=== PATIENT | male | born 1955 | race Caucasian/White ===

== ENCOUNTER 2016-07-16 03:47 | Inpatient (IN) | payer MEDICARE, BC ==
[~2016-07-16] VITALS: Ht 175.3 cm; Wt 83.0 kg
[~2016-07-16 03:47] MED LIST: ASPIRIN81 MG ORAL; COLACE100 MG ORAL; CYMBALTA30 MG ORAL; FISH OIL300 M1 PO; FLUOXETINE HCL40 MG ORAL; FLURAZEPAM HCL15 MG ORAL; GABAPENTIN600 MG ORAL; LEVOTHYROXINE50 MCG ORAL; MIRALAX17 G2 ORAL; MULTI VITAMIN1 EACH ORAL; SENNA8.6 M3 PO; TOPIRAMATE100 MG ORAL; TRIAZOLAM0.25 MG PO; TYLENOL PM EX-1 EACH PO
[2016-07-16 08:00] VITALS: BP 133/85
[2016-07-16 11:45] LABS: BASOPHILS % (AUTO) 0.7 % (0.0-2.0); EOSINOPHILS % (AUTO) 1.5 % (0.0-3.0); LYMPHOCYTES % (AUTO) 36.6 % (20.0-45.0); MEAN CORPUSCULAR HEMOGLOBIN 29.2 PG (27.0-31.0); MEAN CORPUSCULAR HGB CONC 32.6 G/DL (32.0-36.0); MEAN CORPUSCULAR VOLUME 90 FL (80-99); MEAN PLATELET VOLUME 6.9 FL (6.5-10.1); MONOCYTES % (AUTO) 9.8 % (1.0-10.0); NEUTROPHILS % (AUTO) 51.3 % (45.0-75.0); PLATELET COUNT 218 K/UL (150-450); RED BLOOD COUNT 5.31 M/UL (4.70-6.10); RED CELL DISTRIBUTION WIDTH 12.8 % (11.6-14.8)
[2016-07-16] MEDS ORDERED: DESONIDE15 GM TP (11:55)
[2016-07-16] MEDS ORDERED: DIAZEPAM10 MG ORAL (11:55)
[2016-07-16] MEDS ORDERED: DIVALPROEX SOD500 MG PO (11:55)
[2016-07-16 11:59] VITALS: BP 154/77
[2016-07-16 12:02] LABS: INR 1.1 (0.9-1.1)
[2016-07-16] MEDS ORDERED: TRAZODONE HCL150 MG ORAL (12:07)
[2016-07-16] MEDS ORDERED: CYMBALTA60 MG ORAL (12:07)
[2016-07-16] MEDS ORDERED: KLOR-CON 1010 MEQ ORAL (12:07)
[2016-07-16] MEDS ORDERED: QUETIAPINE FUM200 M1 PO (12:07)
[2016-07-16] MEDS ORDERED: FLUOXETINE20 MG/5 ML ORAL (12:07)
[2016-07-16] MEDS ORDERED: ATARAX50 MG ORAL (12:07)
[2016-07-16] MEDS ORDERED: MAGNESIUM400 M1 PO (12:07)
[2016-07-16] MEDS ORDERED: FISH OIL300 M1 PO (12:07)
[2016-07-16] MEDS ORDERED: GABAPENTIN300 MG ORAL (12:07)
[2016-07-16 12:08] LABS: ALANINE AMINOTRANSFERASE 19 U/L (3-41); ALBUMIN/GLOBULIN RATIO 1.6 (1.0-2.7); ANION GAP 15 (5-15); ASPARTATE AMINO TRANSFERASE 21 U/L (5-40); CALCIUM 9.9 mg/dL (8.6-10.2); CARBON DIOXIDE 27 mEQ/L (20-30); CHLORIDE 101 mEQ/L (98-107); CREATININE 1.2 mg/dL (0.7-1.2); GLOMERULAR FILTRATION RATE > 60 mL/min (>60); HEMOLYSIS 8; POTASSIUM 4.2 mEQ/L (3.4-4.9); SODIUM 143 mEQ/L (135-145); TOTAL PROTEIN 7.2 g/dL (6.6-8.7); TROPONIN I < 0.30 ng/mL (<=0.30)
--- NOTE | 2016-07-16 14:06 | Consultation ---
History of Present Illness General Date patient seen: Jul 16, 2016 Chief Complaint: chest pain Referring physician: Dr. Harper Present Illness HPI 61 year old male with hx of CAD, silent MT, seizures, started having Left sided neck pain. He asked his to "google" neck pain to see what it might cause it. They saw heart attack among them. He called his sister in [place] who is a physician, who recommended to call 911. He first was taken to [facility]. An acute MT was ruled out then he was transferred to [place] for further work up. Allergies: Uncoded Allergies: benadryl, niacin, PCN (Allergy, Unknown, Anaphylaxis, 07/16/16) Medication History Scheduled Aspirin* (Aspirin*), 81 MG ORAL DAILY, (Reported) Duloxetine Hcl* (Cymbalta*), 60 MG ORAL DAILY, (Reported) Duloxetine Hcl* (Cymbalta*), 60 MG ORAL DAILY, (Reported) Fluoxetine Hcl (Fluoxetine Hcl), 20 MG ORAL DAILY, (Reported) Gabapentin* (Gabapentin*), 600 MG ORAL THREE TIMES A DAY, (Reported) Gabapentin* (Gabapentin*), 300 MG ORAL THREE TIMES A DAY, (Reported) Hydroxyzine HCl (Hydroxyzine Pamoate), 50 MG ORAL FOUR TIMES A DAY, (Reported) Levothyroxine Sodium* (Levothyroxine Sodium*), 50 MCG ORAL DAILY, (Reported) Multivitamin (Multi Vitamin Daily), 1 TAB ORAL DAILY, (Reported) [place]-3 Fatty Acids (Fish Oil), Unknown Dose PO daily, (Reported) Potassium Chloride (Klor-Con 10), 10 MEQ ORAL DAILY, (Reported) Topiramate* (Topamax*), 200 MG ORAL DAILY, (Reported) Trazodone* (Trazodone*), 150 MG ORAL BEDTIME, (Reported) Scheduled PRN Diazepam* (Diazepam*), 10 MG ORAL Q6H PRN for ANXIETY, (Reported) Docusate Sodium* (Colace*), Unknown Dose ORAL daily PRN for Constipation, ( Reported) Polyethylene Glycol 3350* (Miralax*), Unknown Dose ORAL DAILY PRN for Constipation, (Reported) Sennosides (Senna), Unknown Dose PO daily PRN for Constipation, (Reported) Triazolam* (Halcion*), 0.25 MG PO QHS PRN SLEEP PRN for Insomnia, (Reported) Miscellaneous Medications Desonide (Desonide), 15 GM TP, (Reported) Divalproex Sodium (Divalproex Sodium), 500 MG PO, (Reported) Magnesium Oxide (Magnesium), 400 MG PO, (Reported) [place]-3 Fatty Acids (Fish Oil), 300 MG PO, (Reported) Quetiapine Fumarate (Quetiapine Fumarate Er), 200 MG PO, (Reported) Patient History Healthcare decision maker Resuscitation status Full Code Advanced Directive on File Past Medical/Surgical History Past Medical/Surgical History: (1) CAD (coronary artery disease) (2) Seizures Review of Systems All Other Systems: negative except mentioned in HPI Physical Exam General Appearance: WD/WN Lines, tubes and drains: peripheral, central line HEENT: normocephalic, atraumatic Neck: non-tender, normal alignment Respiratory/Chest: chest wall non-tender, lungs clear Cardiovascular/Chest: normal peripheral pulses, normal rate Abdomen: normal bowel sounds, non tender Genitourinary/Rectal: normal genital exam Last 24 Hour Vital Signs Date Time Temp Pulse Resp B/P Pulse Ox O2 Delivery O2 Flow Rate FiO2 07/16/16 11:59 97.0 81 18 154/77 96 Room Air 07/16/16 08:00 97.3 80 18 133/85 97 Room Air Laboratory Tests Test 07/16/16 11:32 White Blood Count 7.0 K/UL (4.8-10.8) Red Blood Count 5.31 M/UL (4.70-6.10) Hemoglobin 15.5 G/DL (14.2-18.0) Hematocrit 47.6 % (42.0-52.0) Mean Corpuscular Volume 90 FL (80-99) Mean Corpuscular Hemoglobin 29.2 PG (27.0-31.0) Mean Corpuscular Hemoglobin Concent 32.6 G/DL (32.0-36.0) Red Cell Distribution Width 12.8 % (11.6-14.8) Platelet Count 218 K/UL (150-450) Mean Platelet Volume 6.9 FL (6.5-10.1) Neutrophils (%) (Auto) 51.3 % (45.0-75.0) Lymphocytes (%) (Auto) 36.6 % (20.0-45.0) Monocytes (%) (Auto) 9.8 % (1.0-10.0) Eosinophils (%) (Auto) 1.5 % (0.0-3.0) Basophils (%) (Auto) 0.7 % (0.0-2.0) Prothrombin Time 11.0 SEC (9.30-11.50) Prothromb Time International Ratio 1.1 (0.9-1.1) Activated Partial Thromboplast Time 28 SEC (23-33) Sodium Level 143 mEQ/L (135-145) Potassium Level 4.2 mEQ/L (3.4-4.9) Chloride Level 101 mEQ/L (98-107) Carbon Dioxide Level 27 mEQ/L (20-30) Anion Gap 15 (5-15) Blood Urea Nitrogen 21 mg/dL (7-23) Creatinine 1.2 mg/dL (0.7-1.2) Estimat Glomerular Filtration Rate > 60 mL/min (>60) Glucose Level 103 mg/dL (74-106) Calcium Level 9.9 mg/dL (8.6-10.2) Total Bilirubin 0.8 mg/dL (0.0-1.2) Aspartate Amino Transf (AST/SGOT) 21 U/L (5-40) Alanine Aminotransferase (ALT/SGPT) 19 U/L (3-41) Alkaline Phosphatase 60 U/L (40-129) Troponin I < 0.30 ng/mL (<=0.30) Total Protein 7.2 g/dL (6.6-8.7) Albumin 4.5 g/dL (3.5-5.2) Globulin 2.7 g/dL Albumin/Globulin Ratio 1.6 (1.0-2.7) Thyroid Stimulating Hormone (TSH) 3.440 uIU/mL (0.300-4.500) Height (Feet): 5 Height (Inches): 9.00 Weight (Pounds): 183 Assessment/Plan Problem List: (1) Chest pain ICD Codes: R07.9 - Chest pain, unspecified SNOMED: 93057988 (2) Seizures ICD Codes: R56.9 - Unspecified convulsions SNOMED: 72285405 (3) CAD (coronary artery disease) ICD Codes: I25.10 - Atherosclerotic heart disease of [place] coronary artery without angina pectoris SNOMED: 10525167 Assessment/Plan serial ekg, troponin Echo cardio evaluation resume seizure meds JIMENEZ HERRERA Jul 16, 2016 14:06
[2016-07-16] MEDS ORDERED: Depakote 500mg tab ORAL SCH (14:15)
--- NOTE | 2016-07-16 15:27 | Cardiac Electrophysiology PN ---
Subjective Subjective [id number] chest pain. ECG and echo and stress test Objective Last 24 Hour Vital Signs Date Time Temp Pulse Resp B/P Pulse Ox O2 Delivery O2 Flow Rate FiO2 07/16/16 11:59 97.0 81 18 154/77 96 Room Air 07/16/16 08:00 97.3 80 18 133/85 97 Room Air Laboratory Tests Test 07/16/16 11:32 White Blood Count 7.0 K/UL (4.8-10.8) Red Blood Count 5.31 M/UL (4.70-6.10) Hemoglobin 15.5 G/DL (14.2-18.0) Hematocrit 47.6 % (42.0-52.0) Mean Corpuscular Volume 90 FL (80-99) Mean Corpuscular Hemoglobin 29.2 PG (27.0-31.0) Mean Corpuscular Hemoglobin Concent 32.6 G/DL (32.0-36.0) Red Cell Distribution Width 12.8 % (11.6-14.8) Platelet Count 218 K/UL (150-450) Mean Platelet Volume 6.9 FL (6.5-10.1) Neutrophils (%) (Auto) 51.3 % (45.0-75.0) Lymphocytes (%) (Auto) 36.6 % (20.0-45.0) Monocytes (%) (Auto) 9.8 % (1.0-10.0) Eosinophils (%) (Auto) 1.5 % (0.0-3.0) Basophils (%) (Auto) 0.7 % (0.0-2.0) Prothrombin Time 11.0 SEC (9.30-11.50) Prothromb Time International Ratio 1.1 (0.9-1.1) Activated Partial Thromboplast Time 28 SEC (23-33) Sodium Level 143 mEQ/L (135-145) Potassium Level 4.2 mEQ/L (3.4-4.9) Chloride Level 101 mEQ/L (98-107) Carbon Dioxide Level 27 mEQ/L (20-30) Anion Gap 15 (5-15) Blood Urea Nitrogen 21 mg/dL (7-23) Creatinine 1.2 mg/dL (0.7-1.2) Estimat Glomerular Filtration Rate > 60 mL/min (>60) Glucose Level 103 mg/dL (74-106) Calcium Level 9.9 mg/dL (8.6-10.2) Total Bilirubin 0.8 mg/dL (0.0-1.2) Aspartate Amino Transf (AST/SGOT) 21 U/L (5-40) Alanine Aminotransferase (ALT/SGPT) 19 U/L (3-41) Alkaline Phosphatase 60 U/L (40-129) Troponin I < 0.30 ng/mL (<=0.30) Total Protein 7.2 g/dL (6.6-8.7) Albumin 4.5 g/dL (3.5-5.2) Globulin 2.7 g/dL Albumin/Globulin Ratio 1.6 (1.0-2.7) Thyroid Stimulating Hormone (TSH) 3.440 uIU/mL (0.300-4.500) PADMINI VILLASENOR Jul 16, 2016 15:27
--- NOTE | 2016-07-16 15:42 | History & Physical ---
History and Physical History & Physicial Dictated for Int Med-Dr Carrion no. [id number]. YAMILE EASTMAN Jul 16, 2016 15:42
[2016-07-16 16:00] VITALS: BP 134/87
[2016-07-16 20:00] VITALS: BP 148/91
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
[2016-07-16] MEDS ORDERED: Depakote ER 250mg tab ORAL SCH (21:00)
[2016-07-16] MEDS ORDERED: TraZODone 100mg tab ORAL SCH (21:00)
--- NOTE | 2016-07-16 21:48 | Consultation ---
DATE OF CONSULTATION: 07/16/2016 CARDIOLOGY CONSULTATION REFERRING PHYSICIAN: Ned Carrion M.D. REASON FOR CONSULTATION: Chest pain. HISTORY OF PRESENT ILLNESS: The patient is a very pleasant 61-year-old gentleman with a history of hypertension and myocardial infarction. Per patient, he never had a cardiac catheterization and start developing neck pain with radiation to his chest. He asked his to google it and saw a physician recommended to call 911. The patient was taken to [facility]. I was ruled out for myocardial infarction. The patient was then transferred to [facility] for further evaluation and management. He states that it was told that he would not need a defibrillator, but I do not know why it was even considered. He stated that his ejection fraction is now 64%. REVIEW OF SYSTEMS: Review of systems was thoroughly performed and was negative other than what was mentioned in the history of present illness. PAST MEDICAL HISTORY: 1. Hypertension. 2. [place]. 3. Bipolar disorder. FAMILY HISTORY: Noncontributory. SOCIAL HISTORY: He does smoke or drink alcohol. Lives with family. He is allergic to Benadryl, niacin, and penicillin. MEDICATIONS: Include aspirin, Cymbalta, fluoxetine, gabapentin, hydroxyzine, Synthroid, Topamax, and trazodone. His main problem is noncontributory. PHYSICAL EXAMINATION: VITAL SIGNS: Blood pressure is 154/77, pulse 81, respirations 18, and temperature 97. HEENT: Showed no JVD or carotid bruits. LUNGS: Clear. CARDIOVASCULAR: Shows regular S1 and S2 with no gallop or murmur. ABDOMEN: Soft and nontender. EXTREMITIES: No pitting edema. His EKG showed normal sinus rhythm with no acute ST-T wave abnormality. LABORATORY DATA: Show white count 7, hemoglobin 15.4, hematocrit of 47.2, and platelets 218,000. Sodium 143, potassium 4.2, BUN of 21, creatinine 1.2, and glucose of 103. Troponin is negative. INR is 1.1. ASSESSMENT AND PLAN: 1. Atypical chest pain. He has noticed myocardial infarction based on electrocardiogram. The patient was ruled out for myocardial infarction by serial cardiac enzymes. 2. We is scheduled the patient for nuclear stress test for further evaluation. We will also get an echocardiogram. 3. Hypothyroidism on Synthroid. 4. Bipolar disorder on trazodone, Depakote, and gabapentin. Thank you very much for allowing me to participate in the care of this patient. Please do not hesitate to contact me for any questions regarding my evaluation. The case was discussed with Dr. Evon Wallace. Carter Mckeon M.D. DR: ANAMARIA JOB#: [id number] CC:
[2016-07-16] MEDS ORDERED: QUEtiapine 200mg tab ORAL SCH (22:00)
[2016-07-16] MEDS ORDERED: Morphine Sulfate 2mg/ml Inj IVP PRN (22:30)
[2016-07-17 04:30] VITALS: BP 112/64
[2016-07-17 07:12] LABS: EOSINOPHILS % (AUTO) 1.9 % (0.0-3.0); LYMPHOCYTES % (AUTO) 40.7 % (20.0-45.0); MEAN CORPUSCULAR HEMOGLOBIN 29.8 PG (27.0-31.0); MEAN CORPUSCULAR HGB CONC 33.3 G/DL (32.0-36.0); MEAN CORPUSCULAR VOLUME 89 FL (80-99); MEAN PLATELET VOLUME 6.7 FL (6.5-10.1); MONOCYTES % (AUTO) 8.7 % (1.0-10.0); NEUTROPHILS % (AUTO) 47.7 % (45.0-75.0); PLATELET COUNT 175 K/UL (150-450); RED BLOOD COUNT 4.82 M/UL (4.70-6.10); RED CELL DISTRIBUTION WIDTH 12.8 % (11.6-14.8); WHITE BLOOD COUNT 6.5 K/UL (4.8-10.8)
[2016-07-17 07:13] LABS: APPEARANCE,URINE CLEAR; KETONES,URINE NEGATIVE (NEGATIVE); LEUKOCYTE ESTERASE ,URINE NEGATIVE (NEGATIVE); NITRITE,URINE NEGATIVE (NEGATIVE); PH,URINE 6.5 (4.5-8.0); PROTEIN,URINE NEGATIVE (NEGATIVE); UROBILINOGEN,URINE NORMAL MG/DL (0.0-1.0)
[2016-07-17 07:38] LABS: ANION GAP 12 (5-15); CALCIUM 8.9 mg/dL (8.6-10.2); CARBON DIOXIDE 26 mEQ/L (20-30); CHLORIDE 105 mEQ/L (98-107); CHOLESTEROL 229 mg/dL (< 200); CHOLESTEROL/HDL RATIO 5.3 (3.3-4.4); CREATININE 1.1 mg/dL (0.7-1.2); GLOMERULAR FILTRATION RATE > 60 mL/min (>60); HEMOLYSIS 9; LDL CHOLESTEROL (CALC.) 147 mg/dL (60-99); POTASSIUM 3.7 mEQ/L (3.4-4.9); SODIUM 143 mEQ/L (135-145)
[2016-07-17 08:00] VITALS: BP 111/70
[2016-07-17 08:35] LABS: TROPONIN I < 0.30 ng/mL (<=0.30)
[2016-07-17] MEDS ORDERED: Aspirin Baby 81mg ORAL SCH (09:00)
[2016-07-17] MEDS ORDERED: Topiramate 100mg tab ORAL SCH ×2 (09:00)
[2016-07-17] MEDS ORDERED: Magnesium Oxide 400mg tab ORAL SCH (09:00)
[2016-07-17] MEDS ORDERED: DULoxetine 30mg cap ORAL SCH (09:00)
[2016-07-17 12:02] LABS: TROPONIN I < 0.30 ng/mL (<=0.30)
[2016-07-17 12:04] VITALS: BP 108/76
[2016-07-17 16:00] VITALS: BP 131/89
--- NOTE | 2016-07-17 16:01 | Cardiac Electrophysiology PN ---
Assessment/Plan Assessment/Plan 1. Atypical chest pain.Ruled out for myocardial infarction. Stress test report is pending.Echo pending. 2. Bipolar disorder on trazodone, Depakote, and gabapentin. 3. Hyperlipidemia on Lipitor DW RN and nuclear tech Subjective Subjective No chest pain. Had stress test today Objective Last 24 Hour Vital Signs Date Time Temp Pulse Resp B/P Pulse Ox O2 Delivery O2 Flow Rate FiO2 07/17/16 12:04 97.0 62 18 108/76 97 Room Air 07/17/16 08:00 57 07/17/16 08:00 96.9 60 17 111/70 96 Room Air 07/17/16 04:30 97.0 59 20 112/64 95 Room Air 07/17/16 00:00 72 07/16/16 20:00 83 07/16/16 20:00 97.7 81 20 148/91 97 Room Air 07/16/16 16:00 82 07/16/16 16:00 97.2 71 21 134/87 95 Room Air Intake and Output 07/16/16 07/17/16 19:00 07:00 Intake Total 240 ml 300 ml Output Total 750 ml Balance 240 ml -450 ml Intake Oral 240 ml 300 ml Output Urine Total 750 ml # Voids 3 2 # Bowel Movements 1 Laboratory Tests Test 07/17/16 06:15 07/17/16 06:40 07/17/16 11:10 Urine Color Pale yellow Urine Appearance Clear Urine pH 6.5 (4.5-8.0) Urine Specific [place] 1.005 (1.005-1.035) Urine Protein Negative (NEGATIVE) Urine Glucose (UA) Negative (NEGATIVE) Urine Ketones Negative (NEGATIVE) Urine Occult Blood Negative (NEGATIVE) Urine Nitrite Negative (NEGATIVE) Urine Bilirubin Negative (NEGATIVE) Urine Urobilinogen Normal MG/DL (0.0-1.0) Urine Leukocyte Esterase Negative (NEGATIVE) White Blood Count 6.5 K/UL (4.8-10.8) Red Blood Count 4.82 M/UL (4.70-6.10) Hemoglobin 14.4 G/DL (14.2-18.0) Hematocrit 43.1 % (42.0-52.0) Mean Corpuscular Volume 89 FL (80-99) Mean Corpuscular Hemoglobin 29.8 PG (27.0-31.0) Mean Corpuscular Hemoglobin Concent 33.3 G/DL (32.0-36.0) Red Cell Distribution Width 12.8 % (11.6-14.8) Platelet Count 175 K/UL (150-450) Mean Platelet Volume 6.7 FL (6.5-10.1) Neutrophils (%) (Auto) 47.7 % (45.0-75.0) Lymphocytes (%) (Auto) 40.7 % (20.0-45.0) Monocytes (%) (Auto) 8.7 % (1.0-10.0) Eosinophils (%) (Auto) 1.9 % (0.0-3.0) Basophils (%) (Auto) 1.0 % (0.0-2.0) Sodium Level 143 mEQ/L (135-145) Potassium Level 3.7 mEQ/L (3.4-4.9) Chloride Level 105 mEQ/L (98-107) Carbon Dioxide Level 26 mEQ/L (20-30) Anion Gap 12 (5-15) Blood Urea Nitrogen 23 mg/dL (7-23) Creatinine 1.1 mg/dL (0.7-1.2) Estimat Glomerular Filtration Rate > 60 mL/min (>60) Glucose Level 113 mg/dL (74-106) H Calcium Level 8.9 mg/dL (8.6-10.2) Troponin I < 0.30 ng/mL (<=0.30) < 0.30 ng/mL (<=0.30) Triglycerides Level 196 mg/dL (< 150) H Cholesterol Level 229 mg/dL (< 200) H LDL Cholesterol 147 mg/dL (60-99) H HDL Cholesterol 43 mg/dL (> 60) Cholesterol/HDL Ratio 5.3 (3.3-4.4) H Thyroid Stimulating Hormone (TSH) 2.200 uIU/mL (0.300-4.500) Free Thyroxine 0.77 ng/dL (0.86-1.85) L Objective HEENT: Showed no JVD or carotid bruits. LUNGS: Clear. CARDIOVASCULAR: Shows regular S1 and S2 with no gallop or murmur. ABDOMEN: Soft and nontender. EXTREMITIES: No pitting edema. PADMINI VILLASENOR Jul 17, 2016 16:01
[2016-07-17] MEDS ORDERED: DOBUTamine 250mg/250ml Premix IV ONE (16:18)
--- NOTE | 2016-07-17 16:35 | Internal Med Progress Note ---
Subjective Date of Service: Jul 17, 2016 Physician Name Yamile Eastman Attending Physician Ned Carrion MD Current Medications Medications (Trade) Dose Ordered Sig/Buzz Route PRN Reason Start Time Stop Time Status Last Admin Dose Admin Aspirin (ASA) 81 mg DAILY ORAL 07/17/16 09:00 08/16/16 08:59 07/17/16 09:05 Atorvastatin Calcium (Lipitor) 10 mg BEDTIME ORAL 07/16/16 21:00 08/15/16 20:59 Divalproex Sodium (Depakote ER) 250 mg QHS ORAL 07/16/16 21:00 08/15/16 20:59 07/16/16 21:52 Duloxetine HCl (Cymbalta) 60 mg DAILY ORAL 07/17/16 09:00 08/16/16 08:59 07/17/16 09:05 Gabapentin (Neurontin) 600 mg THREE TIMES A DAY ORAL 07/16/16 21:00 08/15/16 20:59 07/17/16 12:11 Levothyroxine Sodium (Synthroid) 50 mcg ACBREAKFAST ORAL 07/17/16 06:30 08/16/16 06:29 07/17/16 06:19 Magnesium Oxide (Mag-Ox 400mg) 400 mg DAILY ORAL 07/17/16 09:00 08/16/16 08:59 07/17/16 09:05 Morphine Sulfate (Morphine Sulfate) 2 mg Q4H PRN IVP For Pain 07/16/16 22:30 07/23/16 22:29 Potassium Chloride (K-Dur) 10 meq DAILY ORAL 07/17/16 09:00 08/16/16 08:59 07/17/16 09:05 Quetiapine Fumarate (SEROquel) 200 mg BEDTIME ORAL 07/16/16 22:00 08/15/16 21:59 07/16/16 21:50 Topiramate (Topamax) 100 mg DAILY ORAL 07/17/16 09:00 08/16/16 08:59 07/17/16 09:04 Trazodone HCl (Desyrel) 150 mg BEDTIME ORAL 07/16/16 21:00 08/15/16 20:59 07/16/16 21:52 Allergies: Coded Allergies: DIPHENHYDRAMINE (Verified Allergy, Unknown, 07/16/16) NIACIN (Verified Allergy, Unknown, 07/16/16) PENICILLINS (Verified Allergy, Unknown, 07/16/16) Uncoded Allergies: benadryl, niacin, PCN (Allergy, Unknown, Anaphylaxis, 07/16/16) ROS Limited/Unobtainable: No Constitutional: Reports: no symptoms HEENT: Reports: no symptoms Cardiovascular: Reports: no symptoms Respiratory: Reports: no symptoms Gastrointestinal/Abdominal: Reports: no symptoms Genitourinary: Reports: no symptoms Neurologic/Psychiatric: Reports: no symptoms Subjective 61 YO M admitted with left shoulder/arm pain. Await nuclear cardiac stress test results. Cover for Int Med-Dr Carrion. Objective Last Vital Signs Date Time Temp Pulse Resp B/P Pulse Ox O2 Delivery O2 Flow Rate FiO2 07/17/16 12:04 97.0 62 18 108/76 97 Room Air General Appearance: WD/WN, no apparent distress EENT: PERRL/EOMI, normal ENT inspection Neck: non-tender, normal alignment, supple, normal inspection Cardiovascular: normal peripheral pulses, normal rate, regular rhythm, no gallop/murmur, no JVD Respiratory/Chest: chest wall non-tender, lungs clear, normal breath sounds, no respiratory distress, no accessory muscle use Abdomen: normal bowel sounds, non tender, soft, no organomegaly, no mass Extremities: normal range of motion Neurologic: pet counselor II-XII grossly normal, no motor/sensory deficits Skin: normal pigmentation, warm/dry Laboratory Tests Test 07/17/16 06:15 07/17/16 06:40 07/17/16 11:10 Urine Color Pale yellow Urine Appearance Clear Urine pH 6.5 (4.5-8.0) Urine Specific [place] 1.005 (1.005-1.035) Urine Protein Negative (NEGATIVE) Urine Glucose (UA) Negative (NEGATIVE) Urine Ketones Negative (NEGATIVE) Urine Occult Blood Negative (NEGATIVE) Urine Nitrite Negative (NEGATIVE) Urine Bilirubin Negative (NEGATIVE) Urine Urobilinogen Normal MG/DL (0.0-1.0) Urine Leukocyte Esterase Negative (NEGATIVE) White Blood Count 6.5 K/UL (4.8-10.8) Red Blood Count 4.82 M/UL (4.70-6.10) Hemoglobin 14.4 G/DL (14.2-18.0) Hematocrit 43.1 % (42.0-52.0) Mean Corpuscular Volume 89 FL (80-99) Mean Corpuscular Hemoglobin 29.8 PG (27.0-31.0) Mean Corpuscular Hemoglobin Concent 33.3 G/DL (32.0-36.0) Red Cell Distribution Width 12.8 % (11.6-14.8) Platelet Count 175 K/UL (150-450) Mean Platelet Volume 6.7 FL (6.5-10.1) Neutrophils (%) (Auto) 47.7 % (45.0-75.0) Lymphocytes (%) (Auto) 40.7 % (20.0-45.0) Monocytes (%) (Auto) 8.7 % (1.0-10.0) Eosinophils (%) (Auto) 1.9 % (0.0-3.0) Basophils (%) (Auto) 1.0 % (0.0-2.0) Sodium Level 143 mEQ/L (135-145) Potassium Level 3.7 mEQ/L (3.4-4.9) Chloride Level 105 mEQ/L (98-107) Carbon Dioxide Level 26 mEQ/L (20-30) Anion Gap 12 (5-15) Blood Urea Nitrogen 23 mg/dL (7-23) Creatinine 1.1 mg/dL (0.7-1.2) Estimat Glomerular Filtration Rate > 60 mL/min (>60) Glucose Level 113 mg/dL (74-106) H Calcium Level 8.9 mg/dL (8.6-10.2) Troponin I < 0.30 ng/mL (<=0.30) < 0.30 ng/mL (<=0.30) Triglycerides Level 196 mg/dL (< 150) H Cholesterol Level 229 mg/dL (< 200) H LDL Cholesterol 147 mg/dL (60-99) H HDL Cholesterol 43 mg/dL (> 60) Cholesterol/HDL Ratio 5.3 (3.3-4.4) H Thyroid Stimulating Hormone (TSH) 2.200 uIU/mL (0.300-4.500) Free Thyroxine 0.77 ng/dL (0.86-1.85) L Intake and Output 07/16/16 07/17/16 19:00 07:00 Intake Total 240 ml 300 ml Output Total 750 ml Balance 240 ml -450 ml Intake Oral 240 ml 300 ml Output Urine Total 750 ml # Voids 3 2 # Bowel Movements 1 Assessment/Plan Problem List: (1) Gal's thyroiditis (2) Bipolar depression Assessment & Plan: cont cymbalta and depakote. (3) Renal calculi (4) Jaw pain (5) Left shoulder pain (6) Seizure disorder Assessment & Plan: Cont topamax (7) Traumatic brain injury (8) Chest pain Assessment & Plan: Nuclear med cardiac stress test nonischemic. see cardiology note. (9) CAD (coronary artery disease) Status: progressing Assessment/Plan Discharge planning YAMILE EASTMAN Jul 17, 2016 16:35
--- NOTE | 2016-07-17 22:23 | Pulmonology Progress Note ---
Assessment/Plan Problems: (1) Chest pain (2) Seizures (3) CAD (coronary artery disease) Assessment/Plan Assessment/Plan serial ekg, troponin Echo cardio evaluation resume seizure meds Subjective ROS Limited/Unobtainable: No Constitutional: Reports: anorexia, fatigue Respiratory: Reports: dyspnea at rest, shortness of breath Cardiovascular: Reports: chest pain, palpitations Allergies: Coded Allergies: DIPHENHYDRAMINE (Verified Allergy, Unknown, 07/16/16) NIACIN (Verified Allergy, Unknown, 07/16/16) PENICILLINS (Verified Allergy, Unknown, 07/16/16) Uncoded Allergies: benadryl, niacin, PCN (Allergy, Unknown, Anaphylaxis, 07/16/16) Objective Last 24 Hour Vital Signs Date Time Temp Pulse Resp B/P Pulse Ox O2 Delivery O2 Flow Rate FiO2 07/17/16 18:59 96.6 07/17/16 16:00 96.6 94 21 131/89 99 Room Air 07/17/16 16:00 94 07/17/16 12:04 97.0 62 18 108/76 97 Room Air 07/17/16 08:00 57 07/17/16 08:00 96.9 60 17 111/70 96 Room Air 07/17/16 04:30 97.0 59 20 112/64 95 Room Air 07/17/16 00:00 72 Intake and Output 07/16/16 07/17/16 19:00 07:00 Intake Total 240 ml 300 ml Output Total 750 ml Balance 240 ml -450 ml Intake Oral 240 ml 300 ml Output Urine Total 750 ml # Voids 3 2 # Bowel Movements 1 General Appearance: no acute distress HEENT: normocephalic, atraumatic, PERRL Respiratory/Chest: chest wall non-tender, decreased breath sounds, accessory muscle use Cardiovascular: normal peripheral pulses, normal rate, regular rhythm, no JVD Abdomen: normal bowel sounds, soft, non tender, no organomegaly Genitourinary: normal external genitalia Extremities: no cyanosis, pedal pulses normal Skin: no rash, lesions 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, no motor/sensory deficits Laboratory Tests 07/17/16 06:15: Urine Color Pale yellow, Urine Appearance Clear, Urine pH 6.5, Urine Specific [place] 1.005, Urine Protein Negative, Urine Glucose (UA) Negative, Urine Ketones Negative, Urine Occult Blood Negative, Urine Nitrite Negative, Urine Bilirubin Negative, Urine Urobilinogen Normal, Urine Leukocyte Esterase Negative 07/17/16 06:40: White Blood Count 6.5, Red Blood Count 4.82, Hemoglobin 14.4, Hematocrit 43.1, Mean Corpuscular Volume 89, Mean Corpuscular Hemoglobin 29.8, Mean Corpuscular Hemoglobin Concent 33.3, Red Cell Distribution Width 12.8, Platelet Count 175, Mean Platelet Volume 6.7, Neutrophils (%) (Auto) 47.7, Lymphocytes (%) (Auto) 40.7, Monocytes (%) (Auto) 8.7, Eosinophils (%) (Auto) 1.9, Basophils (%) (Auto ) 1.0, Sodium Level 143, Potassium Level 3.7, Chloride Level 105, Carbon Dioxide Level 26, Anion Gap 12, Blood Urea Nitrogen 23, Creatinine 1.1, Estimat Glomerular Filtration Rate > 60, Glucose Level 113H, Calcium Level 8.9, Troponin I < 0.30, Triglycerides Level 196H, Cholesterol Level 229H, LDL Cholesterol 147H, HDL Cholesterol 43, Cholesterol/HDL Ratio 5.3H, Thyroid Stimulating Hormone (TSH) 2.200, Free Thyroxine 0.77L 07/17/16 11:10: Troponin I < 0.30 JIMENEZ HERRERA Jul 17, 2016 22:23
--- NOTE | 2016-07-18 13:43 | Diagnostic Imaging Report ---
Indication: chest pain Technique: The study was conducted under the supervision of a report programmer. Dolbutamine administration followed by intravenous administration of 30.1 mCi of technetium 99m Myoview was performed. Three plane SPECT imaging of the heart was then performed. A resting study was performed as part of the one-day protocol with 11 mCi of technetium 99m myoview injected intravenously at that time. Three plane SPECT imaging of the heart was obtained. Comparison: None Clinical data: Resting heart rate: 63. Peak heart rate: 127 (short of the target) 85% maximum predicted heart rate 137 Resting blood pressure: 118/85. Peak blood pressure: 145/70. No symptoms. Normal sinus rhythm on EKG 1. Clinical response: Non ischemic 2. Electrocardiographic response: Non ischemic Findings: The myocardial perfusion scan demonstrates no fixed or reversible perfusion defects. LVEF as estimated at 69%. Impression: Negative myocardial perfusion scan. Target heart rate was not reached
--- NOTE | 2016-07-18 14:19 | Discharge Summary ---
Discharge Summary Hospital Course Date of Admission Jul 16, 2016 at 07:29 Date of Discharge Jul 17, 2016 at 20:53 Admitting Diagnosis HPI Noel Reed is a 61 year old male who was admitted on Jul 16, 2016 at 07: 29 for Chest Pain,Acute Coronary Syndrome Hospital Course [id number] Discharge Discharge Disposition Patient was discharged to Home (01) Discharge Diagnoses: Angelique Horne NP Jul 18, 2016 14:18
--- NOTE | 2016-07-18 22:38 | Discharge Summary 2 SIG ---
DATE OF ADMISSION: 07/16/2016 DATE OF DISCHARGE: 07/17/2016 CONSULTANTS: 1. Carter Mckeon M.D. 2. Evon Wallace M.D. BRIEF HOSPITAL COURSE: The patient is a 61-year-old male, who presented with chest pain and jaw pain. He initially presented to [facility] and was transferred to [place] for insurance purposes. He was admitted for cardiac evaluation and monitoring of cardiac enzymes. Dr. Mckeon was consulted. He has history of hypertension and was continued on Lipitor. He underwent dobutamine stress test, results were nonischemic. Cardiac troponins were negative. Due to rapid unexpected improvement in his symptoms and negative workup, he was discharged home. Advised to follow up as outpatient. FINAL DIAGNOSES: 1. Coronary artery disease. 2. Bipolar depression. 3. Gal's thyroiditis. 4. Renal calculi. 5. Seizure disorder. 6. Hyperlipidemia. Nathaniel Miller M.D. I have been assigned to dictate discharge summary on this account and I was not involved in the patient's management. Angelique Horne N.P. DR: ELIZABETH JOB#: [id number] CC:
--- NOTE | 2016-07-19 14:44 | Cardiology Report ---
APPROVED REPORT EXAM: Two-dimensional and M-mode echocardiogram with Doppler and color Doppler. M-Mode DIMENSIONS IVSd0.8 (0.7-1.1cm)Left Atrium (MM)3.7 (1.6-4.0cm) LVDd4.9 (3.5-5.6cm)Aortic Root3.5 (2.0-3.7cm) PWd0.9 (0.7-1.1cm)Aortic Cusp Exc.1.8 (1.5-2.0cm) LVDs3.6 (2.5-4.0cm) PWs1.4 cm Technically difficult study due to poor parasternal acoustical windows. Normal left ventricular chamber size, systolic function and wall motion to extent visualized. Left ventricular ejection fraction estimated to be 55 %. Borderline mild left ventricular hypertrophy by 2-D. Anterior Echo-free space, may be due to pericardial fat or effusion. All other cardiac chamber sizes are within normal limits. Mild focal aortic valve sclerosis with adequate cusp excursion. Mildly thickened mitral valve leaflets with normal excursion. Mitral annulus and aortic root calcification. Pulmonic valve not well visualized. Normal tricuspid valve structure. IVC at normal size with physiologic collapse. A color flow and spectral Doppler study was performed and revealed: Mild aortic regurgitation. Trace mitral regurgitation. LV diastolic dysfunction. Trace to mild tricuspid regurgitation. Tricuspid systolic velocities suggests peak right ventricular systolic pressure of 31 mmHg. No pulmonic regurgitation present.
== END 2016-07-17 20:53 | disposition home or self-care (01) | DRG 303 ==
LOC: 2W 07:29 → 2E 08:10
DX: I25.10 Atherosclerotic heart disease of native coronary artery without angina pectoris (principal); N20.0 Calculus of kidney; F31.89 Other bipolar disorder; R07.89 Other chest pain; E06.3 Autoimmune thyroiditis; G40.909 Epilepsy, unspecified, not intractable, without status epilepticus; E78.5 Hyperlipidemia, unspecified; Z87.820 Personal history of traumatic brain injury; Z98.1 Arthrodesis status; Z88.0 Allergy status to penicillin; Z88.8 Allergy status to other drugs, medicaments and biological substances; I25.2 Old myocardial infarction
CPT/HCPCS: 36415; 78452; 80048; 80053; 80061; 81003; 82962; 84439; 84443; 84484; 85025; 85610; 85730; 87081; 93017; 93306